=== PATIENT | male | born 1955 | race Caucasian/White ===

== ENCOUNTER → 2016-04-17 | Outpatient (CLI) | payer OTHER ==
--- NOTE | 2016-04-22 09:05 | SLEEPCENT ---
DATE OF PROCEDURE: 04/17/2016 REQUESTING PROVIDER: Ida Manzo NP INTERPRETATION: Nocturnal polysomnography was performed for the titration of pressure therapy in this patient with obstructive sleep apnea syndrome, apnea-hypopnea index of 18. For testing, the patient was fit with a [employer] Quattro full face mask of medium size, 4 cm of water pressure were applied to the circuit and the lights were extinguished. 8 hours and 16 minutes of data were reviewed. There were 433 minutes of sleep identified. Sleep latency was mildly prolonged at 11 minutes. Rapid eye movement (REM) latency was short at 55 minutes. Sleep architecture improved with optimal pressure therapy. Some fragmentation persisted, but overall sleep efficiency was 88%. The patient's electrocardiogram (EKG) showed a sinus rhythm with an average heart rate of 54 beats per minute. Electroencephalogram (EEG) showed reasonably normal waveforms for awake and sleep. Multiple pressures were attempted during of the course of the study. Bilevel therapy was also attempted. Best sleep was seen on a CPAP pressure of +10, with which pressure the patient slept through REM without respiratory event or oxygen desaturation. Some limb activity was appreciated, and there were at least three trains of 30 events identified. Limb movement arousal index on this occasion was 9.8, increased from the diagnostic study. IMPRESSION: 1. Obstructive sleep apnea syndrome (G47.33). 2. Periodic limb movement disorder (G47.61). Limb movement arousal index of 9.8. RECOMMENDATIONS: Nightly use of pressure therapy at 10 cm of water should be sufficient to address the patient's respiratory events. Pending clinical response, interventions to reduce the frequency of arousal from limb activity may also be helpful.
== END ==
LOC: M SLEEP 19:41
PROVIDERS: ATTEND Nurse Practitioner Adult Health
DX: G47.33 Obstructive sleep apnea (adult) (pediatric) (principal); G47.61 Periodic limb movement disorder

== ENCOUNTER 2018-01-26 09:17 | Emergency (ER) | payer OTHER ==
[2018-01-26 10:13] LABS: BASO % 0.5 % (0.0-1.0); EOS # 0.2 10^3/uL (0.0-0.50); EOS % 3.9 % (0.0-3.0); HEMATOCRIT 38.6 % (42.0-52.0); HEMOGLOBIN 13.1 g/dl (13.5-17.5); IMMATURE GRANULOCYTE % 0.2 % (0-3.0); LYMPH # 0.9 10^3/uL (1.5-4.5); LYMPH % 21.8 % (24.0-44.0); MEAN CORPUSCULAR HEMOGLOBIN 28.4 pg (27.0-33.0); MEAN CORPUSCULAR HGB CONC 33.9 g/dl (32.0-36.5); MEAN CORPUSCULAR VOLUME 83.5 fl (80.0-96.0); MONO # 0.4 10^3/uL (0.0-0.8); MONO % 9.2 % (0.0-5.0); NEUTROPHILS # 2.7 10^3/uL (1.8-7.7); NEUTROPHILS % 64.4 % (36.0-66.0); PLATELET COUNT, AUTOMATED 157 10^3/uL (150-450); RED BLOOD COUNT 4.62 10^6/uL (4.30-6.10); RED CELL DISTRIBUTION WIDTH 14.7 % (11.5-14.5); WHITE BLOOD COUNT 4.1 10^3/uL (4.0-10.0)
[2018-01-26 10:28] LABS: INR 1.09; PROTHROMBIN TIME 14.2 SECONDS (12.1-14.4)
[2018-01-26 10:53] LABS: ANION GAP 7 MEQ/L (8-16); BLOOD UREA NITROGEN 14 MG/DL (7-18); CALCIUM LEVEL 8.4 MG/DL (8.8-10.2); CARBON DIOXIDE LEVEL 28 MEQ/L (21-32); CHLORIDE LEVEL 104 MEQ/L (98-107); CPK CREATINE PHOSPHOKINASE 43 U/L (39-308); CREATININE FOR GFR 0.63 MG/DL (0.70-1.30); GLOMERULAR FILTRATION RATE > 60.0 (>49); GLUCOSE, FASTING 127 MG/DL (70-100); MB/CK RELATIVE INDEX 4.88 (< OR =4); NT-PRO BNP 459 PG/ML (<125); POTASSIUM SERUM 3.2 MEQ/L (3.5-5.1); SODIUM LEVEL 139 MEQ/L (136-145); THYROID STIMULATING HORMONE 0.868 uIU/ML (0.358-3.740); TROPONIN I < 0.02 NG/ML (< 0.10)
[2018-01-26] MEDS: POTASSIUM CHLORIDE 10 MEQ SR TABLET PO (11:06)
== END 2018-01-26 12:43 | disposition home or self-care (01) ==
LOC: M ED 09:17
DX: R06.00 Dyspnea, unspecified (principal); I48.91 Unspecified atrial fibrillation; E11.9 Type 2 diabetes mellitus without complications; I10 Essential (primary) hypertension; J45.909 Unspecified asthma, uncomplicated; G47.30 Sleep apnea, unspecified; E78.5 Hyperlipidemia, unspecified; K21.9 Gastro-esophageal reflux disease without esophagitis; Z79.84 Long term (current) use of oral hypoglycemic drugs; Z79.899 Other long term (current) drug therapy; Z88.0 Allergy status to penicillin; Z88.8 Allergy status to other drugs, medicaments and biological substances; Z86.69 Personal history of other diseases of the nervous system and sense organs
CPT/HCPCS: 71046

== ENCOUNTER 2018-02-02 09:19 | Outpatient (RCR) | payer OTHER | END 2018-02-19 | LOC: M PT 09:19 → M OT 02-17 10:30 → M PT 09:19 | DX: G93.89 Other specified disorders of brain (principal) ==

== ENCOUNTER → 2018-03-22 | Outpatient (RCR) | payer OTHER ==
[~2018-03-22] MED LIST: AMLO10TA4; ATOR40TA75; BREO1INH3; CETI10TA; FLUTISP; GABA-843; LOSA100T5; MAPA325T2; METF-839; PANT40TA3
== END ==
LOC: M OT 02-22 10:16 → M PT 03-04 08:59 → M OT 03-08 10:12 → M PT 03-10 11:15
PROVIDERS: ATTEND Neurological Surgery
DX: G93.89 Other specified disorders of brain (principal)

== ENCOUNTER 2018-04-08 09:00 | Outpatient (RCR) | payer OTHER ==
[~2018-04-08 09:00] MED LIST changes: -AMLO10TA4; +AMLO10TA5
== END 2018-04-22 ==
LOC: M PT 09:00
PROVIDERS: ATTEND Neurological Surgery
DX: Z51.89 Encounter for other specified aftercare (principal); G93.89 Other specified disorders of brain

== ENCOUNTER 2018-05-18 11:05 | Outpatient (RCR) | payer OTHER | END 2018-05-20 | disposition home or self-care (01) | LOC: M PT 11:05 | PROVIDERS: ATTEND Neurological Surgery | DX: D43.2 Neoplasm of uncertain behavior of brain, unspecified (principal); R42 Dizziness and giddiness ==

== ENCOUNTER 2018-05-27 09:42 | Outpatient (RCR) | payer OTHER | END 2018-06-20 | LOC: M PT 09:42 | PROVIDERS: ATTEND Neurological Surgery | DX: Z48.3 Aftercare following surgery for neoplasm (principal) ==

== ENCOUNTER → 2020-02-14 | Outpatient (CLI) | payer MEDICARE ==
[~2020-02-14] MED LIST changes: -AMLO10TA5; +AMLO1TAB25; -MAPA325T2; +MAPA325T8; +PANT40TA29; -PANT40TA3
--- NOTE | 2020-02-14 13:06 | REP ---
INDICATION: THORACIC AORTIC ANEURSYM W/O RUPTURE COMPARISON: None TECHNIQUE: Axial noncontrast images from the thoracic inlet to the upper abdomen with coronal and sagittal reformations. This CT examination was performed using the following dose reduction techniques: Automated exposure control, adjustment of mA and/or kv according to the patient's size, and use of iterative reconstruction technique. FINDINGS: There is moderate atherosclerotic changes and significant tortuosity to the thoracic aorta which measures approximately 4.1 cm maximal diameter at the aortic root through the level of the proximal aortic arch slowly tapering through the arch and proximal descending thoracic aorta to approximately 3.3 cm diameter and 2.9 cm maximal diameter at the level of the diaphragmatic hiatus. Branch vessels through the aortic arch appear relatively normal. Mild cardiomegaly suggested with atherosclerotic changes to the coronary arteries. No pericardial effusion. Nonspecific mediastinal lymph nodes measure up to approximately 13 mm short axis diameter. There is a 4 mm pulmonary nodule in the right upper lobe (image 55) along with minimal basilar scarring and small punctate calcified granulomata. No focal consolidation, further suspicious nodule or mass lesion. No effusion. No pneumothorax. Tracheobronchial tree is patent. Musculoskeletal structures are intact. Limited upper abdomen demonstrates normal bilateral adrenal glands and 1.1 cm exophytic presumed right renal cyst. IMPRESSION: 1. Thoracic aortic measurements are as described above with maximal dilatation at 4.1 cm through the proximal ascending aorta. Moderate ectasia and atherosclerotic changes noted. 2. Lung celis demonstrate changes related to prior granulomatous disease. A 4 mm noncalcified pulmonary nodule in the right upper lobe is identified and may warrant 12 month follow-up evaluation for high risk patients based on Fleischner society criteria. <Electronically signed by Calvin Villa > 02/14/20 [id number]
== END ==
LOC: M RAD 12:35
PROVIDERS: ATTEND Physician Assistant Medical
DX: I71.2 Thoracic aortic aneurysm, without rupture (principal)

== ENCOUNTER → 2021-05-06 | Outpatient (CLI) | payer MEDICARE ==
[~2021-05-06] MED LIST changes: +GABA-282; -GABA-843
== END ==
LOC: M SLEEP 20:00
PROVIDERS: ATTEND Physician Assistant
DX: G47.33 Obstructive sleep apnea (adult) (pediatric) (principal)

== ENCOUNTER → 2022-01-21 | Outpatient (CLI) | payer MEDICARE | LOC: M PLAIMG 09:07 | PROVIDERS: ATTEND Physician Assistant Medical | DX: R91.1 Solitary pulmonary nodule (principal) ==

== ENCOUNTER → 2022-01-30 | Outpatient (CLI) | payer MEDICARE | LOC: M CARPUL 08:01 | PROVIDERS: ATTEND Internal Medicine Pulmonary Disease | DX: R06.00 Dyspnea, unspecified (principal) ==

== ENCOUNTER → 2022-02-17 | Outpatient (CLI) | payer MEDICARE | LOC: M RAD 13:10 | PROVIDERS: ATTEND Physician Assistant Medical | DX: I65.23 Occlusion and stenosis of bilateral carotid arteries (principal) ==

== ENCOUNTER → 2022-02-21 | Outpatient (CLI) | payer MEDICARE ==
[~2022-02-21] MED LIST changes: +ISOVUE-370 76% 100ML VIAL As Ordered ONE
== END ==
LOC: M RAD 15:05
PROVIDERS: ATTEND Physician Assistant Medical
DX: K74.60 Unspecified cirrhosis of liver (principal)
CPT/HCPCS: 74178; Q9967

== ENCOUNTER → 2022-09-04 | Outpatient (CLI) | payer MEDICARE ==
[~2022-09-04] MED LIST changes: +FLUT50SP17; -FLUTISP; -ISOVUE-370 76% 100ML VIAL As Ordered ONE
== END ==
LOC: M RAD 12:14
PROVIDERS: ATTEND Physician Assistant Medical
DX: Q61.00 Congenital renal cyst, unspecified (principal)

== ENCOUNTER → 2022-09-08 | Outpatient (CLI) | payer MEDICARE ==
[2022-09-08 10:17] LABS: BLOOD UREA NITROGEN 22 MG/DL (9-23); CREATININE FOR GFR 0.73 MG/DL (0.70-1.30); GLOMERULAR FILTRATION RATE > 60.0 (>49)
== END ==
LOC: M LAB 09:20
PROVIDERS: ATTEND Internal Medicine Pulmonary Disease
DX: R06.00 Dyspnea, unspecified (principal)

== ENCOUNTER → 2022-09-12 | Outpatient (CLI) | payer MEDICARE ==
[~2022-09-12] MED LIST changes: +ISOVUE-370 76% 100ML VIAL ONE
== END ==
LOC: M PLAIMG 08:46
PROVIDERS: ATTEND Internal Medicine Pulmonary Disease
DX: R91.8 Other nonspecific abnormal finding of lung field (principal)
CPT/HCPCS: 71260; Q9967

== ENCOUNTER → 2022-09-29 | Outpatient (CLI) | payer MEDICARE ==
[~2022-09-29] MED LIST changes: +ISOVUE-370 76% 100ML VIAL As Ordered ONE; -ISOVUE-370 76% 100ML VIAL ONE
== END ==
LOC: M RAD 07:47
PROVIDERS: ATTEND Physician Assistant Medical
DX: Q61.00 Congenital renal cyst, unspecified (principal)
CPT/HCPCS: 74170; Q9967

== ENCOUNTER 2023-01-26 17:39 | Inpatient (IN) | payer MEDICARE ==
[~2023-01-26] VITALS: Ht 170.2 cm; Wt 126.0 kg
[~2023-01-26 17:39] MED LIST changes: -ISOVUE-370 76% 100ML VIAL As Ordered ONE
[2023-01-26 19:16] LABS: BASO % 0.3 % (0.0-1.0); EOS # 0.3 10^3/uL (0.0-0.5); EOS % 3.6 % (0.0-3.0); HEMATOCRIT 43.2 % (42.0-52.0); HEMOGLOBIN 14.4 g/dl (13.5-17.5); LYMPH # 0.6 10^3/uL (1.5-5.0); LYMPH % 6.3 % (24.0-44.0); MEAN CORPUSCULAR HEMOGLOBIN 30.6 pg (27.0-33.0); MEAN CORPUSCULAR HGB CONC 33.3 g/dl (32.0-36.5); MEAN CORPUSCULAR VOLUME 91.9 fl (80.0-96.0); MONO # 0.3 10^3/uL (0.0-0.8); MONO % 3.9 % (2.0-8.0); NEUTROPHILS # 7.5 10^3/uL (1.5-8.5); NEUTROPHILS % 85.4 % (36.0-66.0); PLATELET COUNT, AUTOMATED 211 10^3/uL (150-450); WHITE BLOOD COUNT 8.8 10^3/uL (4.0-10.0)
[2023-01-26 19:31] LABS: ALBUMIN 3.9 G/DL (3.2-5.2); ALKALINE PHOSPHATASE 98 U/L (46-116); ALT/SGPT 39 U/L (7.0-40); AST/SGOT 17 U/L (<34); BILIRUBIN,DIRECT 0.2 MG/DL (<0.4); BILIRUBIN,TOTAL 0.3 MG/DL (0.3-1.2); BLOOD UREA NITROGEN 18 MG/DL (9-23); CALCIUM LEVEL 8.8 MG/DL (8.3-10.6); CARBON DIOXIDE LEVEL 25 MMOL/L (20-31); CHLORIDE LEVEL 107 MMOL/L (98-107); CK-MB VALUE MASS 2.1 NG/ML (<3.6); CPK CREATINE PHOSPHOKINASE 126 U/L (46-171); CREATININE FOR GFR 0.74 MG/DL (0.70-1.30); GLOMERULAR FILTRATION RATE > 60.0 (>49); GLUCOSE, FASTING 186 MG/DL (74-106); INR 1.15; MB/CK RELATIVE INDEX 1.66 (< OR =4); POTASSIUM SERUM 4.1 MMOL/L (3.5-5.1); PROTHROMBIN TIME 14.3 SECONDS (12.5-14.5); SODIUM LEVEL 141 MMOL/L (136-145); TOTAL PROTEIN 6.3 G/DL (5.7-8.2)
[2023-01-26 19:34] LABS: THYROXINE (T4) 7.8 UG/DL (4.5-10.9)
[2023-01-26 19:35] LABS: THYROID STIMULATING HORMONE 0.872 uIU/ML (0.55-4.78)
[2023-01-26] MEDS: IPRATROPIUM 0.5MG/ALBUTEROL 2.5MG INH SOL UD 3ML (DUONEB) NEB PRN ×2 (22:40→22:43)
[2023-01-26] MEDS ORDERED: NS 1,000 ML IV ONE (23:05)
[2023-01-27 00:18] LABS: CK-MB VALUE MASS 1.8 NG/ML (<3.6); MB/CK RELATIVE INDEX 1.36 (< OR =4)
[2023-01-27] MEDS ORDERED: NS 1,000 ML IV ONE (00:35)
[2023-01-27] MEDS ORDERED: ISOVUE-370 76% 100ML VIAL As Ordered ONE (01:00)
[2023-01-27 01:14] LABS: ABG BASE EXCESS -3.5 (-2.0-2.0); ABG HCO3 20.8 MMOL/L (22.0-26.0); ABG O2 SATURATION 97.7 % (95.0-99.0); ABG PARTIAL PRESSURE CO2 35.8 mmHg (35.0-45.0); ABG PARTIAL PRESSURE O2 96.1 mmHg (75.0-100.0); ABG STANDARD HCO3 21.6 MMOL/L. (22.0-26.0); ABG TOTAL CO2 21.9 MMOL/L (23.0-31.0); ABG pH (ARTERIAL) 7.383 UNITS (7.350-7.450)
[2023-01-27 01:21] LABS: D-DIMER QUANT < 0.27 ug/mL (<0.5)
[2023-01-27] MEDS ORDERED: GLUCAGON INJ 1MG VIAL SC PRN (03:20)
[2023-01-27] MEDS ORDERED: MOM 30ML SUSPENSION UDC PO PRN (03:20)
[2023-01-27] MEDS ORDERED: DEXTROSE 50% 50ML SYRINGE IV PRN (03:20)
[2023-01-27] MEDS ORDERED: GLUCOSE 4GM CHEW TABLET PO PRN (03:20)
[2023-01-27] MEDS ORDERED: ALBUTEROL SULFATE 2.5MG/0.5ML INH NEB SOLN NEB PRN (03:20)
[2023-01-27] MEDS ORDERED: ATOR40TA75 PO (03:48)
[2023-01-27] MEDS ORDERED: VITAE40CA PO (03:48)
[2023-01-27] MEDS ORDERED: HYDR-3911 PO (03:48)
[2023-01-27] MEDS ORDERED: ALBU8.5H INH (03:48)
[2023-01-27] MEDS ORDERED: GLUCTAB7 PO (03:48)
[2023-01-27] MEDS ORDERED: FERR1TAB8 PO (03:48)
[2023-01-27] MEDS ORDERED: ALBU2.5V10 INH (03:48)
[2023-01-27] MEDS ORDERED: POTA-141 PO (03:48)
[2023-01-27] MEDS ORDERED: GABA-282 PO ×2 (03:48)
[2023-01-27] MEDS ORDERED: SYMB16INH INH (03:48)
[2023-01-27] MEDS ORDERED: LOSA100T46 PO (03:48)
[2023-01-27] MEDS ORDERED: NIFE-3 PO (03:48)
[2023-01-27] MEDS ORDERED: LEXA1TAB PO (03:48)
[2023-01-27] MEDS ORDERED: PANT40TA29 PO (03:48)
[2023-01-27] MEDS ORDERED: HYDR-3490 PO (03:48)
[2023-01-27] MEDS ORDERED: SPIR-10 PO (03:48)
[2023-01-27] MEDS ORDERED: METF500T13 PO (03:48)
[2023-01-27] MEDS ORDERED: ELIQ5TAB PO (03:48)
[2023-01-27] MEDS ORDERED: HOME MED LIST COMPLETE! XX SCH (03:50)
[2023-01-27 05:17] VITALS: BP 166/86; TEMP 98.6; O2SAT 95
[2023-01-27] MEDS: methylPREDNISolone 125MG 2ML VIAL IV SCH ×3 (05:32→21:12)
[2023-01-27] MEDS: SYMBICORT 160/4.5MCG INHALER 6GM INH SCH ×2 (07:39→19:16)
[2023-01-27] MEDS: ALBUTEROL SULFATE 2.5MG/0.5ML INH NEB SOLN NEB SCH ×4 (07:39→19:16)
[2023-01-27] MEDS ORDERED: ALBUTEROL SULFATE 2.5MG/0.5ML INH NEB SOLN NEB SCH (08:00)
[2023-01-27 08:16] LABS: BASO % 0.2 % (0.0-1.0); EOS % 0.1 % (0.0-3.0); LYMPH # 0.4 10^3/uL (1.5-5.0); LYMPH % 5.1 % (24.0-44.0); MEAN CORPUSCULAR HEMOGLOBIN 30.4 pg (27.0-33.0); MEAN CORPUSCULAR HGB CONC 33.3 g/dl (32.0-36.5); MEAN CORPUSCULAR VOLUME 91.1 fl (80.0-96.0); MONO # 0.1 10^3/uL (0.0-0.8); MONO % 1.6 % (2.0-8.0); NEUTROPHILS # 7.6 10^3/uL (1.5-8.5); NEUTROPHILS % 92.4 % (36.0-66.0); PLATELET COUNT, AUTOMATED 202 10^3/uL (150-450); RED BLOOD COUNT 4.61 10^6/uL (4.30-6.10); WHITE BLOOD COUNT 8.2 10^3/uL (4.0-10.0)
[2023-01-27 08:37] LABS: BLOOD UREA NITROGEN 17 MG/DL (9-23); CALCIUM LEVEL 8.8 MG/DL (8.3-10.6); CARBON DIOXIDE LEVEL 24 MMOL/L (20-31); CHLORIDE LEVEL 106 MMOL/L (98-107); CREATININE FOR GFR 0.65 MG/DL (0.70-1.30); GLOMERULAR FILTRATION RATE > 60.0 (>49); GLUCOSE, FASTING 188 MG/DL (74-106); POTASSIUM SERUM 4.5 MMOL/L (3.5-5.1); SODIUM LEVEL 140 MMOL/L (136-145)
[2023-01-27] MEDS: INSULIN LISPRO (NovoLOG) PER UNIT SC SCH ×3 (08:37→17:21)
[2023-01-27] MEDS: LOSARTAN 50MG TABLET PO SCH (08:38)
[2023-01-27] MEDS: APIXABAN 5 MG TAB (ELIQUIS) PO SCH ×2 (08:38→21:13)
[2023-01-27] MEDS: GABAPENTIN 300 MG CAP PO SCH ×2 (08:38→12:34)
[2023-01-27] MEDS: **hydrALAZINE** 50 MG TAB PO SCH ×3 (08:39→21:13)
[2023-01-27] MEDS: DOCUSATE SODIUM 100MG CAPSULE PO SCH ×2 (08:39→21:13)
[2023-01-27] MEDS: PANTOPRAZOLE 40MG TAB (PROTONIX) PO SCH (08:39)
[2023-01-27] MEDS: NIFEdipine 30MG XL TAB PO SCH (08:39)
[2023-01-27] MEDS: ATORVASTATIN 20 MG TAB PO SCH (08:39)
[2023-01-27] MEDS: FERROUS SULFATE 325MG TAB PO SCH (08:39)
[2023-01-27] MEDS ORDERED: SPIRONOLACTONE 12.5MG PER 1/2 TABLET PO SCH (09:00)
[2023-01-27 14:00] VITALS: BP 175/83; TEMP 98.4; O2SAT 91
[2023-01-27 20:00] VITALS: BP 169/75; TEMP 98.2; O2SAT 93
[2023-01-27] MEDS ORDERED: ESCITALOPRAM OXALATE 10 MG TAB (LEXAPRO) PO SCH (21:00)
[2023-01-27] MEDS ORDERED: GABAPENTIN 300 MG CAP PO SCH (21:00)
[2023-01-27] MEDS ORDERED: INSULIN LISPRO (NovoLOG) PER UNIT SC SCH (21:00)
[2023-01-28] MEDS: ALBUTEROL SULFATE 2.5MG/0.5ML INH NEB SOLN NEB SCH ×4 (00:28→11:22)
[2023-01-28 04:52] VITALS: BP 171/75; TEMP 98.2; O2SAT 90
[2023-01-28] MEDS: methylPREDNISolone 125MG 2ML VIAL IV SCH ×2 (05:21→12:03)
[2023-01-28 06:31] LABS: BASO % 0.1 % (0.0-1.0); HEMATOCRIT 43.4 % (42.0-52.0); HEMOGLOBIN 14.5 g/dl (13.5-17.5); LYMPH # 0.5 10^3/uL (1.5-5.0); LYMPH % 4.1 % (24.0-44.0); MEAN CORPUSCULAR HEMOGLOBIN 30.9 pg (27.0-33.0); MEAN CORPUSCULAR HGB CONC 33.4 g/dl (32.0-36.5); MEAN CORPUSCULAR VOLUME 92.5 fl (80.0-96.0); MONO # 0.6 10^3/uL (0.0-0.8); MONO % 4.8 % (2.0-8.0); NEUTROPHILS # 11.6 10^3/uL (1.5-8.5); NEUTROPHILS % 90.5 % (36.0-66.0); PLATELET COUNT, AUTOMATED 212 10^3/uL (150-450); RED BLOOD COUNT 4.69 10^6/uL (4.30-6.10); WHITE BLOOD COUNT 12.8 10^3/uL (4.0-10.0)
[2023-01-28 06:53] LABS: BLOOD UREA NITROGEN 22 MG/DL (9-23); CALCIUM LEVEL 8.9 MG/DL (8.3-10.6); CARBON DIOXIDE LEVEL 25 MMOL/L (20-31); CHLORIDE LEVEL 107 MMOL/L (98-107); GLOMERULAR FILTRATION RATE > 60.0 (>49); GLUCOSE, FASTING 224 MG/DL (74-106); POTASSIUM SERUM 4.6 MMOL/L (3.5-5.1); SODIUM LEVEL 141 MMOL/L (136-145)
[2023-01-28] MEDS: SYMBICORT 160/4.5MCG INHALER 6GM INH SCH (07:21)
[2023-01-28] MEDS: INSULIN LISPRO (NovoLOG) PER UNIT SC SCH ×2 (08:29→12:03)
[2023-01-28] MEDS: FERROUS SULFATE 325MG TAB PO SCH (08:29)
[2023-01-28] MEDS: APIXABAN 5 MG TAB (ELIQUIS) PO SCH (08:29)
[2023-01-28 08:30] VITALS: BP 130/50
[2023-01-28] MEDS: ATORVASTATIN 20 MG TAB PO SCH (08:30)
[2023-01-28] MEDS: NIFEdipine 30MG XL TAB PO SCH (08:30)
[2023-01-28] MEDS: **hydrALAZINE** 50 MG TAB PO SCH ×2 (08:30→15:42)
[2023-01-28] MEDS: DOCUSATE SODIUM 100MG CAPSULE PO SCH (08:30)
[2023-01-28] MEDS: LOSARTAN 50MG TABLET PO SCH (08:30)
[2023-01-28] MEDS: PANTOPRAZOLE 40MG TAB (PROTONIX) PO SCH (08:30)
[2023-01-28] MEDS: GABAPENTIN 300 MG CAP PO SCH ×2 (08:30→12:03)
[2023-01-28] MEDS ORDERED: DOXY-444 PO (10:36)
[2023-01-28] MEDS ORDERED: PRED10TA2 PO (10:36)
[2023-01-28 11:58] LABS: HEMOGLOBIN A1c 6.4 % (4.0-6.0)
[2023-01-28 14:00] VITALS: BP 141/67; TEMP 98.4; O2SAT 92
== END 2023-01-28 15:45 | disposition home or self-care (01) | DRG 202 ==
LOC: M ED 17:39 → EDBD 17:39 → M ED INP 01-27 03:17 → M MSPAV 01-27 05:15
PROVIDERS: ADMIT Family Medicine; ATTEND Internal Medicine Nephrology
PROC: B246ZZZ Ultrasonography of Right and Left Heart (ICD-10-PCS; principal; 2023-01-27)
DX: J45.901 Unspecified asthma with (acute) exacerbation (principal); Z68.41 Body mass index [BMI] 40.0-44.9, adult; I50.22 Chronic systolic (congestive) heart failure; I48.91 Unspecified atrial fibrillation; I11.0 Hypertensive heart disease with heart failure; E11.9 Type 2 diabetes mellitus without complications; K21.9 Gastro-esophageal reflux disease without esophagitis; E66.01 Morbid (severe) obesity due to excess calories; I71.40 Abdominal aortic aneurysm, without rupture, unspecified; B97.89 Other viral agents as the cause of diseases classified elsewhere; G47.33 Obstructive sleep apnea (adult) (pediatric); M40.209 Unspecified kyphosis, site unspecified; Z66 Do not resuscitate; Z79.01 Long term (current) use of anticoagulants; Z79.899 Other long term (current) drug therapy; Z88.0 Allergy status to penicillin; Z88.8 Allergy status to other drugs, medicaments and biological substances

== ENCOUNTER → 2023-02-19 | Outpatient (CLI) | payer MEDICARE ==
[~2023-02-19] MED LIST changes: +ALBU2.5V10 INH; +ALBU8.5H INH; +ATOR40TA75 PO; +DOXY-444 PO; +ELIQ5TAB PO; +FERR1TAB8 PO; +GABA-282 PO; +GLUCTAB7 PO; +HYDR-3490 PO; +HYDR-3911 PO; +ISOVUE-300 61% 100ML VIAL As Ordered ONE; +LEXA1TAB PO; +LIDOCAINE 1% MDV 20ML VIAL As Ordered ONE; +LOSA100T46 PO; +METF500T13 PO; +NIFE-3 PO; +PANT40TA29 PO; +POTA-141 PO; +PRED10TA2 PO; +SPIR-10 PO; +SYMB16INH INH; +TRIAMCINOLONE ACETONIDE SUSP 40MG/ML 1ML VIAL As Ordered ONE; +VITAE40CA PO
== END ==
LOC: M RAD 14:55
PROVIDERS: ATTEND Orthopaedic Surgery
DX: M16.0 Bilateral primary osteoarthritis of hip (principal)
CPT/HCPCS: 20610; 77002; J3301; Q9967

== ENCOUNTER 2023-03-01 23:02 | Emergency (ER) | payer MEDICARE ==
[~2023-03-01] VITALS: Ht 172.7 cm; Wt 130.0 kg
[~2023-03-01 23:02] MED LIST changes: -FLUT50SP17; +FLUTISP; -ISOVUE-300 61% 100ML VIAL As Ordered ONE; -LIDOCAINE 1% MDV 20ML VIAL As Ordered ONE; -TRIAMCINOLONE ACETONIDE SUSP 40MG/ML 1ML VIAL As Ordered ONE
[2023-03-01 23:49] LABS: BASO % 0.3 % (0.0-1.0); EOS # 0.2 10^3/uL (0.0-0.5); EOS % 2.7 % (0.0-3.0); HEMATOCRIT 43.5 % (42.0-52.0); HEMOGLOBIN 14.5 g/dl (13.5-17.5); LYMPH # 0.6 10^3/uL (1.5-5.0); LYMPH % 6.5 % (24.0-44.0); MEAN CORPUSCULAR HGB CONC 33.3 g/dl (32.0-36.5); MEAN CORPUSCULAR VOLUME 92.9 fl (80.0-96.0); MONO # 0.7 10^3/uL (0.0-0.8); MONO % 8.1 % (2.0-8.0); NEUTROPHILS # 7.1 10^3/uL (1.5-8.5); NEUTROPHILS % 82.1 % (36.0-66.0); PLATELET COUNT, AUTOMATED 175 10^3/uL (150-450); RED BLOOD COUNT 4.68 10^6/uL (4.30-6.10); WHITE BLOOD COUNT 8.6 10^3/uL (4.0-10.0)
[2023-03-02 00:17] LABS: ALBUMIN 3.8 G/DL (3.2-5.2); ALKALINE PHOSPHATASE 85 U/L (46-116); ALT/SGPT 29 U/L (7.0-40); AST/SGOT 15 U/L (<34); BILIRUBIN,DIRECT 0.2 MG/DL (<0.4); BILIRUBIN,TOTAL 0.6 MG/DL (0.3-1.2); BLOOD UREA NITROGEN 15 MG/DL (9-23); CALCIUM LEVEL 8.9 MG/DL (8.3-10.6); CARBON DIOXIDE LEVEL 25 MMOL/L (20-31); CHLORIDE LEVEL 110 MMOL/L (98-107); CREATININE FOR GFR 0.76 MG/DL (0.70-1.30); GLOMERULAR FILTRATION RATE > 60.0 (>49); GLUCOSE, FASTING 205 MG/DL (74-106); POTASSIUM SERUM 4.3 MMOL/L (3.5-5.1); SODIUM LEVEL 144 MMOL/L (136-145); TOTAL PROTEIN 6.1 G/DL (5.7-8.2)
[2023-03-02 03:06] LABS: CK-MB VALUE MASS 1.6 NG/ML (<3.6)
[2023-03-02 03:08] LABS: MB/CK RELATIVE INDEX 1.23 (< OR =4)
[2023-03-02 03:15] LABS: PROCALCITONIN 0.07 ng/ml
[2023-03-02 03:46] VITALS: O2SAT 90
[2023-03-02 04:00] VITALS: TEMP 98.3
[2023-03-02] MEDS ORDERED: IPRATROPIUM 0.5MG/ALBUTEROL 2.5MG INH SOL UD 3ML (DUONEB) NEB ONE (04:05)
[2023-03-02] MEDS ORDERED: PRED20TA PO (04:06)
[2023-03-02 05:08] VITALS: BP 134/84; O2SAT 93
== END 2023-03-02 05:08 | disposition home or self-care (01) ==
LOC: EDBD 23:02 → M ED 23:02
DX: J45.901 Unspecified asthma with (acute) exacerbation (principal); I10 Essential (primary) hypertension; E78.5 Hyperlipidemia, unspecified; I48.91 Unspecified atrial fibrillation; Z88.0 Allergy status to penicillin; Z88.8 Allergy status to other drugs, medicaments and biological substances; Z79.899 Other long term (current) drug therapy; Z79.01 Long term (current) use of anticoagulants; Z79.51 Long term (current) use of inhaled steroids

== ENCOUNTER → 2024-06-15 | Outpatient (CLI) | payer MEDICARE ==
[~2024-06-15] MED LIST changes: +DOXY-440 PO; -DOXY-444 PO; +GABA-1172; +GABA-1172 PO; -GABA-282; -GABA-282 PO; -HYDR-3911 PO; +HYDR50TA46 PO; +PRED20TA PO
== END ==
LOC: M RAD 13:47
PROVIDERS: ATTEND Physician Assistant Medical
DX: R91.1 Solitary pulmonary nodule (principal)

== ENCOUNTER → 2024-11-12 | Outpatient (CLI) | payer MEDICARE ==
[~2024-11-12] MED LIST changes: +SEMA0.257 SQ
== END ==
LOC: M RAD 12:15
PROVIDERS: ATTEND Psychiatry & Neurology Neurology
DX: I63.81 Other cerebral infarction due to occlusion or stenosis of small artery (principal); I65.23 Occlusion and stenosis of bilateral carotid arteries; I67.2 Cerebral atherosclerosis

== ENCOUNTER 2024-11-19 11:44 | Observation (INO) | payer MEDICARE ==
[~2024-11-19] VITALS: Ht 170.2 cm; Wt 124.5 kg
[2024-11-19 12:37] LABS: BASO # 0.0 10^3/uL (0.0-0.2); BASO % 0.6 % (0.0-1.0); EOS # 0.3 10^3/uL (0.0-0.5); EOS % 4.5 % (0.0-3.0); LYMPH # 1.0 10^3/uL (1.5-5.0); LYMPH % 15.9 % (24.0-44.0); MONO # 0.5 10^3/uL (0.0-0.8); MONO % 8.2 % (2.0-8.0); NEUTROPHILS # 4.6 10^3/uL (1.5-8.5); NEUTROPHILS % 70.6 % (36.0-66.0); PLATELET COUNT, AUTOMATED 193 10^3/uL (150-450)
[2024-11-19 13:07] LABS: CALCIUM LEVEL 9.0 MG/DL (8.3-10.6); CARBON DIOXIDE LEVEL 27.0 MMOL/L (20-31); CHLORIDE LEVEL 104.0 MMOL/L (98-107); CREATININE FOR GFR 1.02 MG/DL (0.70-1.30); GLOMERULAR FILTRATION RATE 79.1 (>42); POTASSIUM SERUM 3.8 MMOL/L (3.5-5.1); SODIUM LEVEL 142.0 MMOL/L (136-145)
[2024-11-19] MEDS ORDERED: LOSA100T5 PO (16:15)
[2024-11-19] MEDS ORDERED: CYAN100049 PO (16:15)
[2024-11-19] MEDS ORDERED: BUSP5TA PO (16:15)
[2024-11-19] MEDS ORDERED: MEMA1TAB3 PO (16:15)
[2024-11-19] MEDS ORDERED: HOME MED LIST COMPLETE! XX SCH (16:20)
[2024-11-19] MEDS ORDERED: ISOVUE-370 76% 100 ML VIAL As Ordered ONE (18:08)
[2024-11-19] MEDS ORDERED: ALBUTEROL 90 MCG/ACT 8 GM HFA INHALER INH PRN (20:45)
[2024-11-19] MEDS ORDERED: GLUCOSE 4 GM CHEW PO PRN (20:45)
[2024-11-19] MEDS ORDERED: ALBUTEROL SULFATE 2.5 MG/0.5 ML INH CONCENTRATE NEB SOLN INH PRN (20:45)
[2024-11-19] MEDS ORDERED: DEXTROSE 50% 50 ML SYRINGE IV PRN (20:45)
[2024-11-19] MEDS ORDERED: GLUCAGON INJ 1 MG VIAL SC PRN (20:45)
[2024-11-19] MEDS: INSULIN LISPRO (NovoLOG) PER UNIT SC SCH (21:00)
[2024-11-19 21:23] LABS: INR 1.14
[2024-11-19] MEDS: busPIRone 5 MG TAB PO SCH (21:33)
[2024-11-19] MEDS: **hydrALAZINE** 50 MG TAB PO SCH (21:33)
[2024-11-19] MEDS: GABAPENTIN 300 MG CAP PO SCH (21:33)
[2024-11-19] MEDS: APIXABAN 5 MG TAB PO SCH (21:33)
[2024-11-19] MEDS: ESCITALOPRAM OXALATE 10 MG TABLET PO SCH (21:33)
[2024-11-19] MEDS: ASPIRIN 81 MG CHEWABLE TABLET PO ONE (21:33)
[2024-11-19 21:42] LABS: CK-MB VALUE MASS 3.3 NG/ML (<3.6)
[2024-11-19 21:45] LABS: ALT/SGPT 36.0 U/L (7.0-40); AST/SGOT 27.0 U/L (<34); CHOLESTEROL LEVEL 84.0 MG/DL (<200); CHOLESTEROL RISK RATIO 3.58 (<5); LDL CHOLESTEROL 36.0 MG/DL (<100); NON-HDL-C 60.6 MG/DL; TRIGLYCERIDES LEVEL 123.0 MG/DL (<150)
[2024-11-19 22:25] LABS: ESTIMATED AVERAGE GLUCOSE 160.0 MG/DL (60-110)
[2024-11-19 23:15] VITALS: BP 151/83; TEMP 97.7; O2SAT 95
[2024-11-19] MEDS: MEMANTINE 5 MG TABLET PO SCH (23:25)
[2024-11-20 00:18] LABS: CPK CREATINE PHOSPHOKINASE 138.0 U/L (46-171); MB/CK RELATIVE INDEX 2.39 (< OR =4)
[2024-11-20 00:35] LABS: KETONE, URINE AUTO RFX NEGATIVE (NEGATIVE); LEUKOCYTE ESTERASE UR AUTO RFX NEGATIVE (NEGATIVE); NITRITE, URINE AUTO RFX NEGATIVE (NEGATIVE); RBC, URINE AUTO RFX 0 /HPF (0-3); SQUAM EPITHELIAL CELL UR AURFX 0 /HPF (0-6); WBC, URINE AUTO RFX 1 /HPF (0-3)
[2024-11-20 00:36] LABS: VITAMIN B12 LEVEL 361.0 PG/ML (211-911)
[2024-11-20 04:29] VITALS: BP 148/81; TEMP 97.7; O2SAT 95
[2024-11-20 07:00] VITALS: BP 159/82; TEMP 97.3; O2SAT 95
[2024-11-20] MEDS: SYMBICORT 160/4.5MCG INHALER 6GM INH SCH (07:18)
[2024-11-20 08:00] VITALS: BP 158/92; TEMP 97.3; O2SAT 95
[2024-11-20 08:29] VITALS: BP 159/82
[2024-11-20] MEDS: NIFEdipine 30 MG XL TAB PO SCH (08:29)
[2024-11-20] MEDS: CYANOCOBALAMIN 500 MCG TAB PO SCH (08:29)
[2024-11-20] MEDS: ASPIRIN 81 MG CHEWABLE TABLET PO SCH (08:30)
[2024-11-20] MEDS: FERROUS SULFATE 325 MG TAB PO SCH (08:30)
[2024-11-20] MEDS: SPIRONOLACTONE 25 MG TAB PO SCH (08:30)
[2024-11-20] MEDS: ATORVASTATIN 20 MG TAB PO SCH (08:30)
[2024-11-20] MEDS: GABAPENTIN 300 MG CAP PO SCH (08:31)
[2024-11-20] MEDS: INSULIN LISPRO (NovoLOG) PER UNIT SC SCH (08:32)
[2024-11-20] MEDS: hydroCHLOROthiazide 25 MG TAB PO SCH (08:33)
[2024-11-20 09:00] VITALS: O2SAT 92
[2024-11-20 11:00] VITALS: BP 144/81; TEMP 97.5; O2SAT 92
[2024-11-20] MEDS ORDERED: ASPI81CH33 PO (11:17)
== END 2024-11-20 14:52 | disposition home or self-care (01) ==
LOC: M ED 11:44 → M ED INP 11:45 → M MSPAV 22:54
PROVIDERS: ADMIT Student in an Organized Health Care Education/Training Program; ATTEND Student in an Organized Health Care Education/Training Program
DX: H53.2 Diplopia (principal); H53.8 Other visual disturbances; R42 Dizziness and giddiness; I48.91 Unspecified atrial fibrillation; Z98.890 Other specified postprocedural states; I11.0 Hypertensive heart disease with heart failure; E78.5 Hyperlipidemia, unspecified; I50.32 Chronic diastolic (congestive) heart failure; I65.29 Occlusion and stenosis of unspecified carotid artery; I71.9 Aortic aneurysm of unspecified site, without rupture; E11.9 Type 2 diabetes mellitus without complications; J45.20 Mild intermittent asthma, uncomplicated; G47.33 Obstructive sleep apnea (adult) (pediatric); R26.89 Other abnormalities of gait and mobility; Z86.011 Personal history of benign neoplasm of the brain; Z86.73 Personal history of transient ischemic attack (TIA), and cerebral infarction without residual deficits; R91.8 Other nonspecific abnormal finding of lung field; Z96.641 Presence of right artificial hip joint; Z83.3 Family history of diabetes mellitus; Z82.49 Family history of ischemic heart disease and other diseases of the circulatory system; Z80.9 Family history of malignant neoplasm, unspecified; Z88.0 Allergy status to penicillin; Z88.8 Allergy status to other drugs, medicaments and biological substances; Z79.899 Other long term (current) drug therapy; Z79.01 Long term (current) use of anticoagulants; Z79.51 Long term (current) use of inhaled steroids; Z79.84 Long term (current) use of oral hypoglycemic drugs; Z79.85 Long-term (current) use of injectable non-insulin antidiabetic drugs
CPT/HCPCS: 70450; 70496; 70498; 70551; 71045; 71275; 80047; 80048; 80061; 80076; 81001; 82550; 82553; 82607; 82746; 83036; 84443; 84484; 85025; 85610; 85730; 93005; 93041; 93306; 94640; 97161; 97530; 99285; G0378; J1815; Q9967

== ENCOUNTER 2024-12-22 08:31 | Day surgery (SDC) | payer MEDICARE ==
[~2024-12-22] VITALS: Ht 172.7 cm; Wt 123.1 kg
[~2024-12-22 08:31] MED LIST changes: +ASPI81CH33 PO; +BUSP5TA PO; +CYAN100049 PO; +LOSA100T5 PO; +MEMA1TAB3 PO
[2024-12-22 10:31] VITALS: TEMP 97.7
[2024-12-22 10:43] VITALS: BP 159/78; O2SAT 94
== END 2024-12-22 10:51 | disposition home or self-care (01) ==
LOC: M OPP 08:31
PROVIDERS: ATTEND Internal Medicine Gastroenterology
DX: K57.30 Diverticulosis of large intestine without perforation or abscess without bleeding (principal); K64.0 First degree hemorrhoids; Z86.0101 Personal history of adenomatous and serrated colon polyps; R13.10 Dysphagia, unspecified; Z86.73 Personal history of transient ischemic attack (TIA), and cerebral infarction without residual deficits; I48.91 Unspecified atrial fibrillation; G47.30 Sleep apnea, unspecified; Z88.0 Allergy status to penicillin; Z88.8 Allergy status to other drugs, medicaments and biological substances; Z79.82 Long term (current) use of aspirin; Z79.01 Long term (current) use of anticoagulants; Z79.899 Other long term (current) drug therapy; Z79.85 Long-term (current) use of injectable non-insulin antidiabetic drugs
CPT/HCPCS: 43249; 45378; J3010